=== PATIENT | female | born 1965 | race Caucasian/White ===

== ENCOUNTER 2017-03-01 16:20 | Emergency (ER) | payer BC ==
[2017-03-01 16:31] VITALS: BP 162/88
--- NOTE | 2017-03-01 16:43 | ED Physician Documentation ---
General Adult - HISTORIAN Historian: patient - HPI Stated Complaint: Left Knee Pain Chief Complaint: Lower Extremity Problem Onset: days ago (1) Timing: still present, better Severity: mild Further Comments: yes (She states she has had mulitple surgery on her left knee and she started to get up yesterday and she noticed pain and swelling. She states she has some decrease swelling with rest and ice although she has had no injury) Last known Well Code/Unknown Code: Unknown - ROS CONST: no problems, other (she is concerned she may have had a fever and she had a right shoulder replacement 7 weeks ago ) CVS/RESP: none GI/: none MS/SKIN/LYMPH: none NEURO/PSYCH: denies: headache, dizziness - PAST HX Past History: other Other History: other Surgeries/Procedures: none Immunizations: UTD Allergies/Adverse Reactions: Allergies Allergy/AdvReac Type Severity Reaction Status Date / Time No Known Allergies Allergy Unverified 03/01/17 16:31 Home Medications: Ambulatory Orders Medication Instructions Recorded Hydrocodone/Acetaminophen [Vicodin 1 each PO 03/01/17 5-300 mg Tablet] Meloxicam [Mobic] 03/01/17 - SOCIAL HX Smoking History: non-smoker Alcohol Use: none Drug Use: none - FAMILY HX Family History: No - VITAL SIGNS Vital Signs: Vital Signs Temp Pulse Resp BP Pulse Ox 79 18 162/88 98 03/01/17 16:20 03/01/17 16:20 03/01/17 16:20 03/01/17 16:20 - REVIEWED ASSESSMENTS Nursing Assessment Reviewed: Yes Vitals Reviewed: Yes ED Results Lab/Radiology - Radiology Radiology Impressions: Examination: Plain film knee History: Knee discomfort Findings: 3 views of the knee demonstrates knee replacement in place. No fracture. No dislocation. Joint effusion. No soft tissue irregularity. Impression: Knee replacement. No fracture or loosening. Joint effusion. Electronically signed on Mar 01, 2017 5:09:49 PM AERONAUTICAL TEST ENGINEER by: Floyd Craig General Adult Physical Exam - PHYSICAL EXAM GENERAL APPEARANCE: no distress EENT: eye inspection normal NECK: normal inspection, thyroid normal CVS: reg rate & rhythm, heart sounds normal, no murmur ABDOMEN: soft BACK: normal inspection SKIN: warm/dry, normal color, other (no calf redness ) EXTREMITIES: non-tender, other (left knee with signifcant swelling, no redness. pain to touch. Pain with Full extension ) NEURO: oriented X3, CN's nml as tested, motor nml, sensation nml Discharge Clincal Impression: Left knee pain Qualifiers: Chronicity: acute Qualified Code(s): M25.562 - Pain in left knee Referrals: Primary Doctor,No [Primary Care Provider] - 2 Days Condition: Stable Disposition: 01 HOME, SELF-CARE Decision to Admit: NO Date of Decison to Admit: 03/01/17 Decision Time: 17:23
[2017-03-01 17:17] LABS: BASOPHILS % 0.7 (0.0-1.5); EOSINOPHILS % 2.9 % (0.0-6.8); MEAN CORPUSCULAR HEMOGLOBIN 29.5 pg (28.0-34.0); MEAN CORPUSCULAR VOLUME 91.9 fl (80.0-100.0); MONOCYTES % 4.8 % (0.0-11.0); NEUTROPHILS # 1.9 # k/uL (1.4-7.7)
--- NOTE | 2017-03-01 17:25 | Diagnostic Imaging Report ---
BETHEL SANTOYO [facility] [address] [facility] [address] [address] Report Submission Date: Mar 01, 2017 5:09:49 PM PHARMACY ASSOCIATE Patient Study Name: MICHAEL SANCHEZ Date: Mar 01, 2017 4:51:22 PM PHARMACY ASSOCIATE Modality Type: CR Gender: F Description: LOWER EXTREMITY : 63 Institution: [facility] Physician: BETHEL SANTOYO Examination: Plain film knee History: Knee discomfort Findings: 3 views of the knee demonstrates knee replacement in place. No fracture. No dislocation. Joint effusion. No soft tissue irregularity. Impression: Knee replacement. No fracture or loosening. Joint effusion. Electronically signed on Mar 01, 2017 5:09:49 PM PHARMACY ASSOCIATE by: Floyd MENDEZ
== END 2017-03-01 17:46 | disposition home or self-care (01) ==
LOC: ED 16:20
DX: M25.562 Pain in left knee (principal)
CPT/HCPCS: 73562; 85025; 99283

== ENCOUNTER 2017-10-02 12:24 | Emergency (ER) | payer SELFPAY ==
[2017-10-02 12:36] VITALS: BP 165/109
[2017-10-02] MEDS ORDERED: 0.9 % SODIUM CHLORIDE 1,000 ML IV ONE (12:36)
[2017-10-02] MEDS ORDERED: HYDROmorphone HCL/PF 1 MG/ML DISP.SYRIN IVP ONE (12:37)
[2017-10-02] MEDS ORDERED: ONDANSETRON HCL/PF 4 MG/ 2ML VIAL IVP ONE (12:37)
--- NOTE | 2017-10-02 12:37 | ED Physician Documentation ---
General Adult - HISTORIAN Historian: patient - HPI Stated Complaint: Migraine Chief Complaint: General Adult Onset: hours Timing: still present Severity: moderate Further Comments: yes (Pt is a 52 yo female with a migraine headache. Pt has hx migraines but has not had one for more than a year. Pt has n/v, photophobia. ) - ROS CONST: no problems EYES/ENT: none CVS/RESP: none GI/: vomiting, nausea MS/SKIN/LYMPH: none NEURO/PSYCH: headache - PAST HX Past History: other (thyroid dz,) Surgeries/Procedures: hysterectomy, other (ortho surgery) Allergies/Adverse Reactions: Allergies Allergy/AdvReac Type Severity Reaction Status Date / Time No Known Allergies Allergy Verified 10/02/17 12:36 Home Medications: Ambulatory Orders Medication Instructions Recorded Meloxicam [Mobic] 1 tab PO PRN PRN 03/01/17 Levothyroxine Sodium [Synthroid] 1 tab PO DAILY 10/02/17 - SOCIAL HX Smoking History: cigarettes - FAMILY HX Family History: No - VITAL SIGNS Vital Signs: Vital Signs Temp Pulse Resp BP Pulse Ox 98.8 F 82 17 165/109 97 10/02/17 12:30 10/02/17 12:30 10/02/17 12:30 10/02/17 12:30 10/02/17 12:30 - REVIEWED ASSESSMENTS Nursing Assessment Reviewed: Yes Vitals Reviewed: Yes Progress - Progress Progress: Dilaudid 1 mg IV NS 1 L IVF Zofran 4 mg IV Fentanyl 50 mcg IV improved General Adult Physical Exam - PHYSICAL EXAM GENERAL APPEARANCE: moderate distress EENT: eye inspection normal, pharynx normal NECK: normal inspection, supple RESPIRATORY: no resp distress, chest non-tender, breath sounds normal CVS: reg rate & rhythm, heart sounds normal BACK: normal inspection, no CVA tenderness SKIN: warm/dry, normal color EXTREMITIES: non-tender, normal range of motion, no edema NEURO: oriented X3, CN's nml as tested, motor nml, sensation nml, other (DTR's wnl) Discharge Clincal Impression: Migraine Qualifiers: Migraine type: unspecified Status migrainosus presence: without status migrainosus Intractability: not intractable Qualified Code(s): G43.909 - Migraine, unspecified, not intractable, without status migrainosus Referrals: Primary Doctor,No [Primary Care Provider] - Condition: Stable Disposition: 01 HOME, SELF-CARE Decision to Admit: NO Decision Time: 14:43
[2017-10-02] MEDS ORDERED: HYDROmorphone HCL/PF 2 MG/ML DISP.SYRIN ONE (12:45)
[2017-10-02] MEDS ORDERED: fentaNYL CITRATE/PF 100 MCG/ 2ML AMP IVP ONE (14:21)
[2017-10-02] MEDS ORDERED: fentaNYL CITRATE/PF 100 MCG/ 2ML AMP ONE (14:22)
== END 2017-10-02 14:58 | disposition home or self-care (01) ==
LOC: ED 12:24
DX: G43.909 Migraine, unspecified, not intractable, without status migrainosus (principal)
CPT/HCPCS: J1170; J2405; J7030; 96365; 96375; 99284; J3010; S1016

== ENCOUNTER 2017-12-08 08:15 | Emergency (ER) | payer OTHER ==
[2017-12-08] MEDS: 0.9 % SODIUM CHLORIDE 1,000 ML IV ONE ×2 (08:34→08:35)
[2017-12-08] MEDS: ONDANSETRON HCL/PF 4 MG/ 2ML VIAL IVP ONE (08:34)
[2017-12-08] MEDS: DEXAMETHASONE SOD PHOS 4 MG/ML VIAL IVP ONE (08:35)
[2017-12-08] MEDS: diphenhydrAMINE HCL 50 MG/ML VIAL ONE (08:36)
[2017-12-08] MEDS: KETOROLAC TROMETHAMINE 30 MG/1ML VIAL IVP ONE (08:36)
[2017-12-08] MEDS: DEXAMETHASONE SOD PHOS 4 MG/ML VIAL ONE (08:37)
[2017-12-08] MEDS: diphenhydrAMINE HCL 50 MG/ML VIAL IVP ONE (08:37)
[2017-12-08] MEDS: ONDANSETRON HCL/PF 4 MG/ 2ML VIAL ONE (08:37)
[2017-12-08] MEDS: KETOROLAC TROMETHAMINE 30 MG/1ML VIAL ONE (08:37)
[2017-12-08 10:02] VITALS: BP 123/73
--- NOTE | 2017-12-08 10:02 | ED Physician Documentation ---
Headache - HISTORIAN Historian: patient, spouse - HPI Stated Complaint: Headache Chief Complaint: Headache Onset: other (yesterday) Timing: still present, worse Exposure To: none Severity: severe Quality: similar to previous Associated Symptoms: sensitivity to light, nausea, vomiting Exacerbated By: light, noise, movement Further Comments: yes (52 year old female patient brought in by her Significant other with complaints of migraine headache. Significant other reports patient has not been able to keep down her migraine medication. PCP is in [place], patient lives between [place] and [place], does not have a local PCP. Significant other reports frequent migraines, Patient is not on maintence migraine medication.) - ROS NEURO/PSYCH: denies: confusion, anxiety, depression, fainting, other EYES/ENT: denies: sore throat, difficulty swallowing, sinus pain, drainage CVS/RESP: none GI/: denies: abdominal pain, diarrhea, problems urinating, incontinence, other MS/SKIN/LYMPH: denies: muscle aches, back pain, rash, skin lesions, swollen glands, other all systems neg except as marked: Yes - PAST HX Medical History: migraines Allergies/Adverse Reactions: Allergies Allergy/AdvReac Type Severity Reaction Status Date / Time No Known Allergies Allergy Verified 12/08/17 08:41 Home Medications: Ambulatory Orders Medication Instructions Recorded Meloxicam [Mobic] 1 tab PO PRN PRN 03/01/17 Levothyroxine Sodium [Synthroid] 1 tab PO DAILY 10/02/17 Butalbital/Aspirin/Caffeine 1 each PO PRN PRN 12/08/17 [[id number] Cap] Citalopram Hydrobromide [Celexa] 20 mg PO DAILY 12/08/17 Cyclobenzaprine HCl [Flexeril] 10 mg PO TID PRN 12/08/17 Promethazine HCl [Phenergan] 25 mg PO Q6H PRN #30 tablet 12/08/17 - SOCIAL HX Smoking History: non-smoker - Family HX Family History: denies: none - VITAL SIGNS Vital Signs: Vital Signs Temp Pulse Resp BP Pulse Ox 97.9 F 75 16 123/73 97 12/08/17 10:00 12/08/17 10:00 12/08/17 10:00 12/08/17 10:00 12/08/17 10:00 - REVIEWED ASSESSMENTS Nursing Assessment Reviewed: Yes Vitals Reviewed: Yes Progress - Progress Progress: Patient states she feels better after IV fluids and medications. Discussed maintenance medication options. Patient would like something she could take when vomiting. 1040 Call to [facility], no intranasal medication available. Imitrex tabs called in #9 - 100mg at onset of migraine, may repeat x 1 after 2 hours. Do not exceed 200mg in 24 hours, limit to 3 days a week. ED Results Lab/Radiology - Orders Orders: ED Orders Category Date Time Status Place IV Lock 1T Care 12/08/17 08:33 Active 0.9 % Sodium Chloride [Normal Saline] 1,000 ml Med 12/08/17 08:28 Discontinued IV .STK-MED 0.9 % Sodium Chloride [Normal Saline] 1,000 ml Med 12/08/17 08:25 Discontinued IV Q1H Dexamethasone Sod Phosphate [Decadron] Med 12/08/17 08:28 Discontinued 4 mg .ROUTE .STK-MED ONE Dexamethasone Sod Phosphate [Decadron] Med 12/08/17 08:26 Discontinued 4 mg IVP NOW ONE Ketorolac Tromethamine [Toradol] Med 12/08/17 08:28 Discontinued 30 mg .ROUTE .STK-MED ONE Ketorolac Tromethamine [Toradol] Med 12/08/17 08:27 Discontinued 30 mg IVP NOW ONE Ondansetron HCl/Pf [Zofran 4 mg/2 ml] Med 12/08/17 08:29 Discontinued 4 mg .ROUTE .STK-MED ONE Ondansetron HCl/Pf [Zofran 4 mg/2 ml] Med 12/08/17 08:26 Discontinued 4 mg IVP NOW ONE diphenhydrAMINE HCL [Benadryl] Med 12/08/17 08:26 Discontinued 25 mg IVP NOW ONE diphenhydrAMINE HCL [Benadryl] Med 12/08/17 08:28 Discontinued 50 mg .ROUTE .STK-MED ONE Headache Physical Exam - EXAM General Appearance: moderate distress EENT: no facial swelling, eyes nml inspection, PERRL Respiratory: no resp distress, chest non-tender, breath sounds normal CVS: reg. rate & rhythm, heart sounds nml Abdomen: non-tender, no organomegaly, nml bowel sounds, no distention Skin: color nml, no rash, warm, nml palp., dry Extremitites: non-tender, normal range of motion, no evidence of injury, no edema, J, CORPORATE SALES REPRESENTATIVE - NEURO/PSYCH Higher Functions: alert, oriented x3, nml speech, mood/affect nml Cranial: nml as tested, no evidence of acute CVA Cerebellar: nml as tested, nml gait Sensorimotor: motor nml, sensation nml Discharge Clincal Impression: Migraine Qualifiers: Migraine type: without aura Status migrainosus presence: without status migrainosus Intractability: not intractable Qualified Code(s): G43.009 - Migraine without aura, not intractable, without status migrainosus Prescriptions: Promethazine HCl [Phenergan] 25 mg PO Q6H PRN #30 tablet PRN Reason: Nausea / Vomiting Referrals: Primary Doctor,No [Primary Care Provider] - 2 Days Additional Instructions: Rest in a cool dark room supervisor inspection your nausea medication today. [facility] Condition: Stable Disposition: 01 HOME, SELF-CARE Decision to Admit: NO Decision Time: 09:45
== END 2017-12-08 10:00 | disposition home or self-care (01) ==
LOC: ED 08:15
DX: G43.009 Migraine without aura, not intractable, without status migrainosus (principal)
CPT/HCPCS: 96365; 96375; 99284; J1100; J1200; J1885; J2405; J7030; S1016